=== PATIENT | male | born 1980 | race Caucasian/White ===

== ENCOUNTER 2021-09-04 11:45 | Emergency (ER) | payer OTHER, SELFPAY ==
[~2021-09-04] VITALS: Ht 165.1 cm; Wt 72.6 kg
[2021-09-04 11:54] VITALS: BP_SYST 147
--- NOTE | 2021-09-04 12:05 | NUR ---
Pt placed in the tent
--- NOTE | 2021-09-04 12:06 | NUR ---
Pt brought by self, A&Ox4, pt presents to ER with cough/ congestion and fever, skin pink and warm, cap refill <3, VSS, respirations even and unlabored.
--- NOTE | 2021-09-04 12:13 | NUR ---
Dr Dominguez evaluating patient at bedside
[2021-09-04] MEDS ORDERED: PHEDM120 PO (12:14)
--- NOTE | 2021-09-04 12:34 | NUR ---
Patient given written and verbal discharge instructions and verbalizes understanding. ER MD discussed with patient the results and treatment provided. Patient in stable condition. ID arm band removed. Rx of promethazine/phenergan given. Patient educated on pain management and to follow up with PMD. Pain Scale 0/10. Opportunity for questions provided and answered. Medication side effect fact sheet provided.
== END 2021-09-04 12:34 | disposition home or self-care (01) ==
LOC: SED 11:45
DX: U07.1 COVID-19 (principal); Z79.899 Other long term (current) drug therapy
CPT/HCPCS: 99283

== ENCOUNTER 2022-04-05 08:41 | Outpatient (CLI) | payer OTHER ==
[~2022-04-05 08:41] MED LIST: PHEDM120 PO
== END 2022-04-05 13:06 | disposition home or self-care (01) ==
LOC: SUS 08:41
PROVIDERS: ATTEND Internal Medicine
DX: N28.9 Disorder of kidney and ureter, unspecified (principal)
CPT/HCPCS: 76770

== ENCOUNTER 2022-09-08 16:15 | Emergency (ER) | payer OTHER ==
[~2022-09-08] VITALS: Ht 170.2 cm; Wt 72.6 kg
[2022-09-08 16:19] VITALS: BP_SYST 129
[2022-09-08 16:55] LABS: BILIRUBIN,URINE NEGATIVE (NEGATIVE); BLOOD, URINE NEGATIVE (NEGATIVE); CLARITY/URINE CLEAR (CLEAR); COLOR,URINE YELLOW (YELLOW); GLUCOSE,URINE NEGATIVE (NEGATIVE); KETONES,URINE TRACE (NEGATIVE); LEUKOCYTE ESTERASE ,URINE NEGATIVE (NEGATIVE); NITRITE, URINE NEGATIVE (NEGATIVE); PROTEIN URINE NEGATIVE (NEGATIVE); UROBILINOGEN,URINE 0.2 (0.2-1.0)
[2022-09-08] MEDS ORDERED: KETOROLAC TROMETHAMINE 60 MG/2 ML VIAL IM ONE (17:00)
[2022-09-08] MEDS ORDERED: IBUP-1971 PO (20:26)
[2022-09-08] MEDS ORDERED: SOM350 PO (20:26)
[2022-09-08] MEDS ORDERED: DIAZEPAM 5 MG TABLET (VALIUM) PO ONE (20:30)
[2022-09-08 20:38] VITALS: BP_SYST 129
== END 2022-09-08 20:38 | disposition home or self-care (01) ==
LOC: SED 16:15
DX: S39.012A Strain of muscle, fascia and tendon of lower back, initial encounter (principal); M54.32 Sciatica, left side; Z79.899 Other long term (current) drug therapy; X58.XXXA Exposure to other specified factors, initial encounter; Y93.89 Activity, other specified; Y92.89 Other specified places as the place of occurrence of the external cause; Y99.8 Other external cause status
CPT/HCPCS: 99285; 74176; 76376; 96372; 81003; J1885

== ENCOUNTER 2022-09-11 14:37 | Outpatient (CLI) | payer OTHER ==
[~2022-09-11 14:37] MED LIST changes: +IBUP-1971 PO; +SOM350 PO
[2022-09-11 16:06] LABS: BASOPHILS % (AUTO) 0.5 % (0.0-2.0); EOSINOPHILS # (AUTO) 0.3 K/uL (0.0-0.4); EOSINOPHILS % (AUTO) 5.9 % (0.0-4.0); HEMATOCRIT 46.6 % (36-54); HEMOGLOBIN 15.8 g/dL (14.0-18.0); LYMPHOCYTES # (AUTO) 2.4 K/uL (1.0-5.5); LYMPHOCYTES % (AUTO) 44.3 % (20.5-51.5); MEAN CORPUSCULAR HEMOGLOBIN 32 pg (27-31); MEAN CORPUSCULAR HGB CONC 34 % (32-36); MEAN CORPUSCULAR VOLUME 93 fL (79.0-98.0); MONOCYTES # (AUTO) 0.3 K/uL (0.0-1.0); MONOCYTES % (AUTO) 6.1 % (1.7-9.3); NEUTROPHILS # (AUTO) 2.3 K/uL (1.8-7.7); NEUTROPHILS % (AUTO) 43.2 % (40.0-70.0); PLATELET COUNT (AUTO) 257 K/uL (130-430); RED CELL DISTRIBUTION WIDTH 12.7 % (9.0-15.0); WHITE BLOOD COUNT (AUTO) 5.3 K/uL (4.8-10.8)
[2022-09-11 16:31] LABS: ALANINE AMINOTRANSFERASE 43 U/L (12-78); ALBUMIN 4.3 g/dL (3.4-4.8); ANION GAP 5 (5-15); ASPARTATE AMINOTRANSFERASE 21 U/L (10-37); C-REACTIVE PROTEIN QUANT < 0.2 mg/dL (0-0.5); CALCIUM 9.4 mg/dL (8.4-11.0); CHLORIDE 104 mmol/L (98-107); CREATININE 1.24 mg/dL (0.55-1.30); GFR AFRICAN AMERICAN 81 mL/min (>90); GLUCOSE 95 mg/dL (70-99); THYROID STIMULATING HORMONE 3.19 uIu/mL (0.36-3.74); TOTAL BILIRUBIN 0.4 mg/dL (0.0-1.0); UREA NITROGEN, BLOOD 14 mg/dL (8-21)
[2022-09-11 16:45] LABS: ERYTHROCYTE SEDIMENTATION RATE 2 MM/HR (0-15)
[2022-09-11 17:03] LABS: CHOLESTEROL 248 mg/dL (<200); HDL CHOLESTEROL 49 mg/dL (>45); TRIGLYCERIDES 133 mg/dL (30-150)
[2022-09-12 06:06] LABS: RA LATEX TURBID <10.0 IU/mL (<14.0)
[2022-09-12 06:22] LABS: HEMOGLOBIN A1C 5.5 % (4.8-5.6)
[2022-09-12 10:06] LABS: ANTI NUCLEAR AB WITH REFLEX Negative (Negative)
== END 2022-09-11 20:57 | disposition home or self-care (01) ==
LOC: SLB 14:37
PROVIDERS: ATTEND Internal Medicine
DX: M51.37 Other intervertebral disc degeneration, lumbosacral region (principal); M48.07 Spinal stenosis, lumbosacral region; M13.0 Polyarthritis, unspecified; E78.5 Hyperlipidemia, unspecified; E55.9 Vitamin D deficiency, unspecified; M54.30 Sciatica, unspecified side
CPT/HCPCS: 36415; 72148; 80053; 80061; 82306; 83036; 84443; 85025; 85651-TC; 86038; 86140; 86431